=== PATIENT | male | born 1985 | race Caucasian/White ===

== ENCOUNTER 2016-12-20 18:59 | Emergency (ER) | payer SELFPAY ==
[~2016-12-20] VITALS: Ht 160 cm; Wt 54.4 kg
[2016-12-20 20:30] VITALS: BP 126/82
== END 2016-12-20 20:30 | disposition home or self-care (01) ==
LOC: ED 18:59
DX: S81.811A Laceration without foreign body, right lower leg, initial encounter (principal); G40.909 Epilepsy, unspecified, not intractable, without status epilepticus; W29.3XXA Contact with powered garden and outdoor hand tools and machinery, initial encounter; Y93.89 Activity, other specified; Y92.89 Other specified places as the place of occurrence of the external cause; Y99.0 Civilian activity done for income or pay
CPT/HCPCS: 90715; J2001; J3490

== ENCOUNTER 2016-12-26 13:08 | Emergency (ER) | payer SELFPAY ==
[2016-12-26 14:32] VITALS: BP 124/78
== END 2016-12-26 14:32 | disposition home or self-care (01) ==
LOC: ED 13:08
DX: S91.311D Laceration without foreign body, right foot, subsequent encounter (principal); X58.XXXD Exposure to other specified factors, subsequent encounter; Y92.89 Other specified places as the place of occurrence of the external cause; Y99.8 Other external cause status
CPT/HCPCS: J0696